=== PATIENT | male | born 1985 | race Caucasian/White ===

== ENCOUNTER 2018-04-03 15:48 | Outpatient (CLI) | END 2018-04-03 15:49 | disposition home or self-care (01) | LOC: FCC-LAB 15:48 | PROVIDERS: ATTEND Family Medicine | DX: G44.229 Chronic tension-type headache, not intractable (principal); R03.0 Elevated blood-pressure reading, without diagnosis of hypertension; E29.1 Testicular hypofunction | CPT/HCPCS: 36415; 80053; 85007; 85025 ==

== ENCOUNTER 2018-04-09 15:37 | Outpatient (CLI) | END 2018-04-09 15:38 | disposition home or self-care (01) | LOC: FCC-LAB 15:37 | PROVIDERS: ATTEND Family Medicine | DX: R79.89 Other specified abnormal findings of blood chemistry (principal); N17.9 Acute kidney failure, unspecified | CPT/HCPCS: 36415; 80053; 85025 ==